=== PATIENT | female | born 2000 | race Caucasian/White ===

== ENCOUNTER 2024-03-06 08:45 | Emergency (ER) | payer MEDICAID, OTHER ==
[2024-03-06 09:13] VITALS: O2SAT 100
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
[2024-03-06 10:13] LABS: BILIRUBIN,URINE MODERATE (NEGATIVE); CLARITY,URINE CLEAR (CLEAR); GLUCOSE, URINE (UA) NEGATIVE (NEGATIVE); KETONES,URINE (UA) >=80 mg/dL (NEGATIVE); LEUKOCYTE ESTERASE, URINE NEGATIVE (NEGATIVE); NITRITE,URINE NEGATIVE (NEGATIVE); OCCULT BLOOD,URINE NEGATIVE (NEGATIVE); PROTEIN,URINE NEGATIVE (NEGATIVE); UROBILINOGEN,URINE 0.2 (NORMAL) E.U./dL (NORMAL)
[2024-03-06 10:14] LABS: HCG UR QUAL NEGATIVE
[2024-03-06 10:16] LABS: BASOPHILS # (AUTO) 0.1 10^3/uL (0.0-0.1); BASOPHILS % (AUTO) 0.5 %; HCT - HEMATOCRIT 40.1 % (37.0-47.0); HGB - HEMOGLOBIN 12.8 g/dL (12.0-16.0); LYMPHOCYTES # (AUTO) 1.9 10^3/uL (1.5-3.5); LYMPHOCYTES % (AUTO) 17.8 %; MEAN CORPUSCULAR HEMOGLOBIN 31.9 pg (27.0-31.0); MEAN CORPUSCULAR HGB CONC 31.9 g/dL (32.0-36.0); MONOCYTES # (AUTO) 0.6 10^3/uL (0.0-1.0); MONOCYTES % (AUTO) 5.6 %; NEUTROPHILS # (AUTO) 8.1 10^3/uL (1.5-6.6); NEUTROPHILS % (AUTO) 75.8 %; PLT - PLATELET COUNT 407 10^3/uL (130-450); RED BLOOD COUNT 4.01 10^6/uL (4.20-5.40); RED CELL DISTRIBUTION WIDTH 11.9 % (12.0-15.0); WHITE BLOOD COUNT 10.7 x10^3/uL (4.8-10.8)
[2024-03-06 10:25] LABS: AMPHETAMINE SCREEN,URINE NEGATIVE (NEGATIVE); BARBITURATE SCREEN,UR NEGATIVE (NEGATIVE); BENZODIAZEPINES SCREEN, URINE NEGATIVE (NEGATIVE); BUPRENORPHINE SCREEN, URINE NEGATIVE (NEGATIVE); COCAINE SCREEN URINE NEGATIVE (NEGATIVE); METHADONE SCREEN, URINE NEGATIVE (NEGATIVE); METHAMPHETAMINES SCREEN, URINE NEGATIVE (NEGATIVE); OPIATE SCREEN, URINE NEGATIVE (NEGATIVE); OXYCODONE SCREEN, URINE NEGATIVE (NEGATIVE); THC CANNABINOID SCREEN, URINE NEGATIVE (NEGATIVE); TRICYCLIC ANTIDEPRESSANT,URINE NEGATIVE (NEGATIVE)
[2024-03-06 10:35] LABS: ALBUMIN 5.2 g/dL (3.2-5.5); ALBUMIN/GLOBULIN RATIO 2.2 (1.0-2.2); ALKALINE PHOSPHATASE 72 IU/L (42-121); ALT ALANINE AMINOTRANSFERASE 17 IU/L (10-60); AST ASPARTATE AMINOTRANSFERASE 18 IU/L (10-42); BUN - BLOOD UREA NITROGEN 12 mg/dL (6-20); CALCIUM 10.2 mg/dL (8.5-10.3); CARBON DIOXIDE - CO2 21 mmol/L (21-32); CHLORIDE 103 mmol/L (101-111); CK- CREATINE KINASE 101 IU/L (30-223); CREATININE 0.6 mg/dL (0.6-1.3); ETOH - ETHANOL < 10.0 mg/dL; GFR - MDRD 125 (>89); GLUCOSE 76 mg/dL (74-104); POTASSIUM 3.9 mmol/L (3.5-4.5); SODIUM 139 mmol/L (135-145); TOTAL PROTEIN 7.6 g/dL (6.4-8.9)
[2024-03-06 10:45] LABS: THYROID STIMULATING HORMONE 1.34 uIU/mL (0.34-5.60)
[2024-03-06 10:47] LABS: ACETAMINOPHEN < 0.1 ug/mL; LIPASE < 10 U/L (11-82)
[2024-03-06 10:48] LABS: SALICYLATE < 1.5 mg/dL
[2024-03-06 17:23] VITALS: BP 129/71
--- NOTE | 2024-03-06 20:00 | ED Physician Documentation ---
ED Addendum - Addendum Addendum: 03/06/24 19:59 Seen by the DCR and I spoke with the DCR. She is having auditory hallucinations and does seem psychotic to her. She does not feel like she would be a good fit for voluntary admission and is detaining the patient. DCR relates to me the patient has not slept so seems like an atypical antipsychotic would be a good thing for her for both things and 10 mg of Zyprexa ordered. 03/06/24 20:56 I was notified that [facility] is considering taking her. They want additional lab testing including 6 CK, magnesium, and lactate. Not sure why they would want a lactate? Also an EKG. 03/06/24 22:13 She was accepted to [facility]. Condition: Stable Disposition: Transferred to psychiatric facility Diagnosis: 1. Acute psychosis
[2024-03-06] MEDS: OLANZapine ODT 5 MG TABLET TL STA (20:08)
[2024-03-06 21:26] LABS: MAGNESIUM 1.9 mg/dL (1.7-2.3)
== END 2024-03-07 01:42 ==
LOC: ED 08:45
DX: F43.9 Reaction to severe stress, unspecified (principal); R45.851 Suicidal ideations; F32.3 Major depressive disorder, single episode, severe with psychotic features
CPT/HCPCS: 36415; 80053; 80143; 80179; 80306; 81003; 81025; 82077; 82550; 83605; 83690; 83735; 84443; 85025; 87635; 93005; 99285; A9270; 81001; 87086